=== PATIENT | female | born 1970 | race Two or more races ===

== ENCOUNTER → 2018-02-07 | Outpatient (CLI) | payer BC ==
--- NOTE | 2018-02-07 20:16 | Diagnostic Imaging Report ---
EXAM: CT Abdomen and Pelvis WITHOUT contrast INDICATION: ^[id number] ^[id number] ^ABD PAIN COMPARISON: None. TECHNIQUE: Abdomen and pelvis were scanned utilizing a multidetector helical scanner from the lung base to the pubic symphysis without administration of IV contrast. Absence of intravenous contrast decreases sensitivity for detection of focal lesions and vascular pathology. Coronal and sagittal reformations were obtained. Routine protocol was performed. IV CONTRAST: None. ORAL CONTRAST: Water RADIATION DOSE: Total DLP: 617.9 mGy*cm Estimated effective dose: (DLP x 0.015 x size factor) mSv COMPLICATIONS: None FINDINGS: LINES and TUBES: None. LOWER THORAX: Unremarkable HEPATOBILIARY: No focal hepatic lesions. No biliary ductal dilation. GALLBLADDER: No radio-opaque stones or sludge. No wall thickening. SPLEEN: No splenomegaly. PANCREAS: No focal masses or ductal dilatation. ADRENALS: No adrenal nodules KIDNEYS/URETERS: No hydronephrosis. No cystic or solid mass lesions. No stones. GI TRACT: No abnormal distention, wall thickening, or evidence of bowel obstruction. Mild scattered diverticulosis throughout the colon without diverticulitis. Appendix is normal. PELVIC ORGANS/BLADDER: Unremarkable. LYMPH NODES: No lymphadenopathy. VESSELS: Unremarkable. PERITONEUM / RETROPERITONEUM: No free air or fluid. BONES: Unremarkable. SOFT TISSUES: Unremarkable. IMPRESSION: 1. Diverticulosis throughout the colon without diverticulitis. 2. Otherwise, unremarkable CT abdomen and pelvis. Signed by: Dr. Therese Sanches M.D. on 02/07/2018 8:13 PM
== END ==
LOC: RAD 16:08
PROVIDERS: ATTEND Family Medicine
DX: R01.1 Cardiac murmur, unspecified (principal); R10.9 Unspecified abdominal pain
CPT/HCPCS: 74176; 93306

== ENCOUNTER → 2021-12-06 | Outpatient (CLI) | payer BC | LOC: US 09:02 | PROVIDERS: ATTEND Emergency Medicine | DX: E03.9 Hypothyroidism, unspecified (principal); E06.9 Thyroiditis, unspecified | CPT/HCPCS: 76536 ==

== ENCOUNTER 2021-12-24 12:08 | Emergency (ER) | payer BC ==
[~2021-12-24] VITALS: Ht 157.5 cm; Wt 59.9 kg
[2021-12-24] MEDS ORDERED: PROVENTIL HFA6.7 GM INH (14:17)
[2021-12-24] MEDS ORDERED: PREDNISONE20 MG PO (14:17)
== END 2021-12-24 14:21 | disposition home or self-care (01) ==
LOC: ER 12:18
DX: R50.9 Fever, unspecified (principal); U07.1 COVID-19; R05.9 Cough, unspecified; E11.9 Type 2 diabetes mellitus without complications; E78.5 Hyperlipidemia, unspecified; Z87.19 Personal history of other diseases of the digestive system
CPT/HCPCS: 71045; 99283